=== PATIENT | male | born 1980 | race Native Hawaiian/Other Pacific Islander ===

== ENCOUNTER 2017-06-21 14:41 | Inpatient (IN) | payer OTHER ==
[~2017-06-21] VITALS: Ht 175.3 cm; Wt 114.3 kg
[2017-06-21] VITALS (8 sets, daily range): BP systolic 91–116; BP diastolic 43–61; TEMP 97.7–98.2; Ht 175.3 cm; Wt 114.3 kg
[~2017-06-21 14:41] MED LIST: BUPR1SUBFM SL
[2017-06-21] MEDS ORDERED: HYDROCHLOROT50 MG PO (14:57)
[2017-06-21] MEDS ORDERED: LISI20TA11 PO (14:57)
[2017-06-21] MEDS ORDERED: LEXAPRO10 MG PO (14:57)
[2017-06-21 15:50] LABS: PLATELET COUNT 234 K/uL (142-355)
[2017-06-21 16:05] LABS: POTASSIUM 4.2 mmol/L (3.6-5.2)
[2017-06-21 18:50] LABS: POTASSIUM 3.6 mmol/L (3.6-5.2)
[2017-06-22] VITALS: BP 101/55; TEMP 98.1
[2017-06-22 04:00] VITALS: BP 113/54; TEMP 97.7
[2017-06-22 05:13] LABS: POTASSIUM 3.5 mmol/L (3.6-5.2)
[2017-06-22 05:14] LABS: PLATELET COUNT 138 K/uL (142-355)
[2017-06-22 08:00] VITALS: BP 109/68; TEMP 97.8
[2017-06-22 12:00] VITALS: BP 116/67; TEMP 97.8
[2017-06-22 16:00] VITALS: BP 112/68; TEMP 98
[2017-06-22 20:03] VITALS: BP 120/73; TEMP 98.1
[2017-06-23] VITALS (7 sets, daily range): BP systolic 94–148; BP diastolic 67–98; TEMP 97.2–98.4
[2017-06-23 05:07] LABS: PLATELET COUNT 114 K/uL (142-355)
[2017-06-23 05:19] LABS: POTASSIUM 4.3 mmol/L (3.6-5.2)
[2017-06-24] VITALS: BP 133/78; TEMP 98.2
[2017-06-24 05:15] VITALS: BP 146/98; TEMP 98.7
[2017-06-24 06:39] LABS: PLATELET COUNT 143 K/uL (142-355)
[2017-06-24 08:00] VITALS: BP 147/89; TEMP 97.9
[2017-06-24 12:00] VITALS: BP 144/96; TEMP 97.8
== END 2017-06-24 12:10 | disposition home or self-care (01) | DRG 641 ==
LOC: ED 14:41 → MED/SURG 20:04
PROVIDERS: Emergency Medicine; ADMIT Specialist
DX: E86.0 Dehydration (principal); N17.9 Acute kidney failure, unspecified; R94.4 Abnormal results of kidney function studies; E87.1 Hypo-osmolality and hyponatremia
CPT/HCPCS: 36415; 80048; 80053; 80307; 80320; 81000; 82436; 82550; 82553; 82570; 83605; 83880; 84300; 84484; 85027; 93005; 96361; 96365; 96374; 96375; 99284; J2360

== ENCOUNTER 2018-01-16 16:33 | Emergency (ER) | payer OTHER ==
[~2018-01-16] VITALS: Ht 175.3 cm; Wt 90.7 kg
[~2018-01-16 16:33] MED LIST changes: +HYDROCHLOROT50 MG PO; +LEXAPRO10 MG PO; +LISI20TA11 PO
[2018-01-16 20:06] VITALS: BP 129/88; TEMP 98.3
== END 2018-01-16 20:08 | disposition home or self-care (01) ==
LOC: ED 16:33
DX: S20.219A Contusion of unspecified front wall of thorax, initial encounter (principal); S40.012A Contusion of left shoulder, initial encounter; S00.83XA Contusion of other part of head, initial encounter; W17.89XA Other fall from one level to another, initial encounter; Y93.89 Activity, other specified; Y92.098 Other place in other non-institutional residence as the place of occurrence of the external cause
CPT/HCPCS: 36415; 99283